=== PATIENT | male | born 1955 | race Caucasian/White ===

== ENCOUNTER → 2020-11-16 10:05 | Outpatient (CLI) | payer MEDICARE, SELFPAY ==
[2020-11-16 23:58] LABS: SARS-CoV-2 RNA PCR Negative
== END ==
PROVIDERS: PCP Nurse Practitioner Family; Visit Provider Nurse Practitioner Family
DX: R68.89 Other general symptoms and signs (principal); Z20.822 Contact with and (suspected) exposure to COVID-19
CPT/HCPCS: C9803; U0003; U0005

== ENCOUNTER 2021-07-25 01:58 | Day surgery (SDC) | payer MEDICARE, SELFPAY ==
[2021-07-06 10:02] VITALS: BMI 32.8
[2021-07-25 08:07] VITALS: BP 127/85; PULSE 87; RESP 20; TEMP 36.6; O2SAT 99
[2021-07-25] MEDS: LACTATED RINGERS 1,000 ML 150 ML IV CONT (08:09)
--- NOTE | 2021-07-25 08:33 | WPDANESEPPF ---
Anes - Initial Pre Proc Eval Procedure: Operation Date: 07/25/21 09:15 Proposed Procedures p Screening Colonoscopy - Eran Meadows MD Date/Time: 07/25/21 08:33 Surgeon: Eran Meadows MD Pre Op Diagnosis: neoplasm screening Patient Data Age: 66 Gender: M Height: 1.8 m Weight: 106.5 kg Last Vital Signs Temp 98 F 07/25/21 08:07 Pulse 87 07/25/21 08:07 Resp 20 07/25/21 08:07 BP 127/85 07/25/21 08:07 Pulse Ox 99 07/25/21 08:07 Allergies Allergy/AdvReac Type Severity Reaction Status Date / Time No Known Allergies Allergy Unknown Verified 07/25/21 08:05 Home Medications Medication Instructions Recorded Confirmed Type fosinopril 40 mg tablet See Rx Instructions .ROUTE 04/24/21 07/25/21 Rx .COMPLEX #90 tablet latanoprost 0.005 % eye drops 1 drp EACH EYE DAILY 05/24/21 07/25/21 History omeprazole 20 mg capsule,delayed 20 mg PO DAILY #90 cap 05/24/21 07/25/21 Rx release amlodipine 10 mg tablet 10 mg PO DAILY #90 tablet 06/14/21 07/25/21 Rx finasteride 5 mg tablet 5 mg PO DAILY #90 tablet 06/14/21 07/25/21 Rx tamsulosin 0.4 mg capsule 0.4 mg PO DAILY #90 cap 07/05/21 07/25/21 Rx aspirin [Adult Low Dose Aspirin] 81 mg PO DAILY 07/06/21 07/25/21 History Patient hx anesthesia problems: none Family hx anesthesia problems: none Results Review: All pre-operative results and documents have been reviewed as part of the pre-operative evaluation. [facility] Past Medical History Medical History (Updated 05/24/21 @ 09:42 by MORENA Silva) IFG (impaired fasting glucose) Prostate cancer screening Wellness examination Family History Family History Other Asthma Social History Social History (Updated 05/24/21 @ 09:08 by Thao Rome MA) Smoking status: Never smoker Alcohol intake: current Drinks per week: 2 Alcohol use details: social Substance use: never Substance use type: does not use Living arrangements: with family Gender identity (if verbalized by the patient): Male Spiritual care concerns: No Anes - Eval Final PreProcedure Day of Procedure 07/25/21 08:33 Patient weight: obese Heart: regular rate and rhythm Airway: Mallampati scale class II Neurological: alert and oriented Last oral intake: >/= 8 hours ASA classification: III Emergent: no Anesthetic plan: proceed Anesthesia type and monitoring: general GIVS and standard monitoring Results Review: All pre-operative results and documents have been reviewed as part of the pre-operative evaluation. Informed Consent: The patient's anesthetic plan and its attendant risks and benefits were discussed with the patient/family/POA. Questions were solicited and answers provided to the satisfaction of the patient/family/POA.
--- NOTE | 2021-07-25 08:56 | P.CONGI_ITS ---
Assessment and Plan Assessment and plan (1) Encounter for screening colonoscopy: Code(s): Z12.11 - Encounter for screening for malignant neoplasm of colon Status: Acute Assessment and Plan: Patient presents for screening colonoscopy. Appears to be at average risk for colon polyps. Further recommendations will be given after colonoscopy. GI Consult Note Consult date/time: 07/25/21 08:56 HPI: Stuart Aldrich is a 66 year old male Presents for screening colonoscopy. Patient's current weight appetite and bowel movements are normal. He denies abdominal pain. He has had no bleeding. Family history is noncontributory. Patient desires neoplasia screening. Review of Systems Review of Systems: All systems reviewed & are unremarkable except as noted in HPI and below PMFSH Past Medical History Medical History (Updated 07/25/21 @ 08:57 by Eran Meadows MD) IFG (impaired fasting glucose) Prostate cancer screening Wellness examination Family History Family History Other Asthma Social History Social History (Updated 05/24/21 @ 09:08 by Thao Rome MA) Smoking status: Never smoker Alcohol intake: current Drinks per week: 2 Alcohol use details: social Substance use: never Substance use type: does not use Living arrangements: with family Gender identity (if verbalized by the patient): Male Spiritual care concerns: No Meds Home Medications and Allergies Home Medications Medication Instructions Recorded Confirmed Type fosinopril 40 mg tablet See Rx Instructions .ROUTE 04/24/21 07/25/21 Rx .COMPLEX #90 tablet latanoprost 0.005 % eye drops 1 drp EACH EYE DAILY 05/24/21 07/25/21 History omeprazole 20 mg capsule,delayed 20 mg PO DAILY #90 cap 05/24/21 07/25/21 Rx release amlodipine 10 mg tablet 10 mg PO DAILY #90 tablet 06/14/21 07/25/21 Rx finasteride 5 mg tablet 5 mg PO DAILY #90 tablet 06/14/21 07/25/21 Rx tamsulosin 0.4 mg capsule 0.4 mg PO DAILY #90 cap 07/05/21 07/25/21 Rx aspirin [Adult Low Dose Aspirin] 81 mg PO DAILY 07/06/21 07/25/21 History Allergies Allergy/AdvReac Type Severity Reaction Status Date / Time No Known Allergies Allergy Unknown Verified 07/25/21 08:05 Vital Signs Vital Signs - 24 hr 07/25/21 08:07 Temperature 98 F Pulse Rate 87 Respiratory Rate 20 Blood Pressure 127/85 Pulse Oximetry 99 Exam Narrative: Physical exam reveals patient to be alert. Vital signs stable. HEENT exam is unremarkable. Patient is anicteric. Lungs are clear to auscultation and percussion. Heart is without murmur or extra sounds. Ab dominal exam bowel sounds are present soft nontender with no organomegaly. Digital external rectal exam is normal.
[2021-07-25 09:26] VITALS: BP 113/73; PULSE 82; RESP 24; O2SAT 97
[2021-07-25 09:36] VITALS: BP 113/74; PULSE 75; RESP 22; O2SAT 99
[2021-07-25 09:46] VITALS: BP 127/86; PULSE 66; RESP 21; O2SAT 99
== END 2021-07-25 09:57 | disposition home or self-care (01) ==
PROVIDERS: PCP Family Medicine; Visit Provider Internal Medicine Gastroenterology
PROC: 0DJD8ZZ Inspection of Lower Intestinal Tract, Via Natural or Artificial Opening Endoscopic (ICD-10-PCS; CPT 45378; principal; 2021-07-25 09:15)
DX: Z12.11 Encounter for screening for malignant neoplasm of colon (principal); K64.8 Other hemorrhoids; E66.9 Obesity, unspecified; Z68.32 Body mass index [BMI] 32.0-32.9, adult
CPT/HCPCS: G0121; J2704; J7120

== ENCOUNTER 2023-03-13 13:06 | Outpatient (CLI) | payer MEDICARE, SELFPAY ==
--- NOTE | ~2023-03-13 | CT_ITS ---
EXAMINATION: CT abdomen pelvis wo/w con DATE: 03/13/2023 13:56 INDICATION: Gross hematuria TECHNIQUE: Computed tomography (CT) of the abdomen and pelvis was performed without and subsequently with 130 CC Omnipaque 350 intravenous contrast. Automated exposure control and iterative reconstructi on technique were employed. Exam dose: 3042.55 mGy-cm total exam DLP. COMPARISON: 06/10/2018 CT abdomen pelvis FINDINGS: The lung bases are clear of infiltrate or consolidation. Heart size is normal. Coronary art jesus calcification. No pericardial or pleural effusion. Moderate sliding hiatal hernia. The gallbladder is present. No the lateral wall thickening or pericholecystic fluid or fat stranding. No bile duct dilatation. No hepatic, splenic, pancreatic or adrenal gland mass lesion. No pancreatic calcification or ductal dilatation. Bilateral nonspecific perinephric stranding. No renal mass lesion or scarring. No filling defect of t he renal collecting structures or ureters. No hydroureteronephrosis. Pinpoint nonobstructing left renal calculus. No other urinary tract calculus or hydronephrosis is not ed. There is prostate enlargement and calcification. There is mild diffuse thickening of the urinary blad ladi wall, likely due to the prostatomegaly. Normal appendix. There is a prominent amount of fecal material within the colon. No bowel obstruction, bowel wall thic kening, pneumatosis or intraperitoneal free air. Small fat-containing umbilical hernia. Diffuse idiopathic skeletal hyperostosis of the thoracic spine. There is degenerative spurring of the lumbar spine. There is fusion at the L4-5 intervertebral disc s pace. There is mildly severe degenerative disease and minimal retrolisthesis at L5-S1. Degenerative c hange at the sacroiliac joints. No suspicious osteolytic or osteoblastic lesions are noted. IMPRESSION: Prostatomegaly Pinpoint nonobstructing left renal calculus Moderate sliding hiatal hernia Normal appendix Reviewed, dictated and finalized at [facility]. Reviewed, dictated and finalized at [facility].
[2023-03-13 13:34] LABS: Estimated Glomerular Filt Rate 60
== END 2023-03-13 13:07 | disposition home or self-care (01) ==
PROVIDERS: PCP Family Medicine; Visit Provider Urology
DX: R31.0 Gross hematuria (principal); N40.0 Benign prostatic hyperplasia without lower urinary tract symptoms; K44.9 Diaphragmatic hernia without obstruction or gangrene; N20.0 Calculus of kidney
CPT/HCPCS: 74178; Q9967

== ENCOUNTER 2023-06-21 08:31 | Outpatient (CLI) | payer MEDICARE, SELFPAY ==
--- NOTE | ~2023-06-21 | US_ITS ---
US abdomen limited INDICATION: PROCEDURE: Realtime right upper abdominal ultrasound. COMPARISON: No prior studies for comparison. FINDINGS: The pancreas is normal without focal mass or pancreatic ductal dilation. Liver echotexture is normal without focal mass or intrahepatic biliary dilatation. There is normal directional flow i n the portal vein. The gallbladder is normal without stones, gallbladder wall thickening or pericholecystic fluid. Comm on bile duct measures 2 mm. No sonographic Watters's sign. IMPRESSION: 1: Normal limited abdominal ultrasound. Reviewed, dictated and finalized at location [facility].
== END 2023-06-21 08:32 | disposition home or self-care (01) ==
PROVIDERS: PCP Family Medicine; Visit Provider Family Medicine
DX: R10.11 Right upper quadrant pain (principal)
CPT/HCPCS: 76705

== ENCOUNTER 2025-07-12 08:39 | Outpatient (CLI) | payer MEDICARE, SELFPAY ==
--- NOTE | ~2025-07-12 | XR_ITS ---
EXAMINATION: XR knee LT 3V, 07/12/2025 11:05 [employer] HISTORY: ANTEROR LT KNEEE PAIN AFTR FALL IN DECEMBER COMPARISON: No comparisons available. Findings: No acute fracture or malalignment. Moderate to severe tricompartmental degenerative changes, small effusion Soft tissues unremarkable. Impression: No acute fracture or malalignment. Reviewed, dictated and finalized at location P. [employer] Impression: No acute fracture or malalignment.
== END 2025-07-12 08:40 | disposition home or self-care (01) ==
PROVIDERS: PCP Family Medicine
DX: M25.562 Pain in left knee (principal)
CPT/HCPCS: 73562